=== PATIENT | male | born 1990 | race Caucasian/White ===

== ENCOUNTER 2025-02-25 22:12 | Emergency (ER) | payer BC, SELFPAY ==
[2025-02-25] MEDS ORDERED: Boostrix 0.5 ML (Tdap) VIAL (>/=7 yrs of age) ONE (23:14)
== END 2025-02-25 23:26 | disposition home or self-care (01) ==
LOC: CSHERS 22:12
DX: S91.231A Puncture wound without foreign body of right great toe with damage to nail, initial encounter (principal); S91.234 Puncture wound without foreign body of right lesser toe(s) with damage to nail; Z23 Encounter for immunization; W22.8XXA Striking against or struck by other objects, initial encounter; Y93.89 Activity, other specified; Y92.34 Swimming pool (public) as the place of occurrence of the external cause
CPT/HCPCS: 90471; 90715